=== PATIENT | female | born 1955 ===

== ENCOUNTER 2023-08-05 07:37 | Day surgery (SDC) | payer OTHER ==
[~2023-08-05 07:37] MED LIST: HYDROCHLOROTHIA25 MG PO; LEVOTHYROXINE25 MCG PO; LIPITOR40 MG PO; TOPROL XL50 M1 PO; VERELAN PM200 MG PO
== END 2023-08-05 12:10 | disposition home or self-care (01) ==
LOC: CIR.AMB 07:37
PROVIDERS: ATTEND Colon & Rectal Surgery
DX: R15.9 Full incontinence of feces (principal); Z88.0 Allergy status to penicillin; Z88.1 Allergy status to other antibiotic agents; Z20.822 Contact with and (suspected) exposure to COVID-19
CPT/HCPCS: 64581; 95971; C1778

== ENCOUNTER 2023-08-19 08:14 | Day surgery (SDC) | payer OTHER | END 2023-08-19 15:20 | disposition home or self-care (01) | LOC: CIR.AMB 08:14 | PROVIDERS: ATTEND Colon & Rectal Surgery | DX: R15.9 Full incontinence of feces (principal); Z88.0 Allergy status to penicillin; Z88.1 Allergy status to other antibiotic agents | CPT/HCPCS: 64590; 95971; C1767 ==